=== PATIENT | male | born 1935 | race Caucasian/White ===

== ENCOUNTER 2017-12-15 10:29 | Emergency (ER) | payer MEDICARE, OTHER ==
[~2017-12-15] VITALS: Ht 188 cm; Wt 90.7 kg
[~2017-12-15 10:29] MED LIST: ALBU90OI6; ALBU90OI6 INH; ASPI325 PO; ASPI81CH PO; Aspirin EC81 MG; CARV25 PO; CARV3.125 PO; CARV6.25 PO; CAYENNE PEPPER PO; CETI10 PO; Co Q-10300 MG PO; DOXYLAMINE SUCCINATE PO; ELIQUIS5 MG PO; ENTRESTO 24 MG1 EACH PO; FAMO20 PO; FENT75TP TOP; FURO40 PO; Flomax0.4 MG PO; GUAI200 PO; Garlic1 EAC1 PO; ISODIN10 PO; LAVAP17G PO; LEVO750 PO; LISI10 PO; LISI5 PO; NITR.6SL; OXYC5 PO; Omega 3 Fish O1 EACH PO; Omeprazole20 M1 PO; PROSTATE PQ TA1 EACH PO; Prilosec20 MG PO; Prinivil10 MG PO; RED YEAST RICE; Red Yeast Rice600 MG PO; SPIR25 PO; STOOL SOFTENERS; STRESS B WITH1 EACH PO; TAMS.4ER PO; Zofran8 MG; [UNRECOGNIZED DRUG - OTHER]; [UNRECOGNIZED DRUG - OTHER] PO
[2017-12-15 11:49] LABS: BASOPHILS ABSOLUTE AUTO 0.02 K/mm3 (0.00-0.23); BASOPHILS PERCENT AUTO 0 % (0-2); EOSINOPHILS PERCENT AUTO 0 % (0-6); Hematocrit 47.6 % (37.0-53.0); Hemoglobin 15.5 g/dL (13.5-17.5); IMMATURE GRAN ABSOLUTE AUTO 0.02 K/mm3 (0.00-0.10); IMMATURE GRAN PERCENT AUTO 0 % (0-1); LYMPHOCYTES ABSOLUTE AUTO 1.01 K/mm3 (0.84-5.20); LYMPHOCYTES PERCENT AUTO 17 % (21-46); MONOCYTES ABSOLUTE AUTO 0.72 K/mm3 (0.16-1.47); MONOCYTES PERCENT AUTO 12 % (4-13); Mean Corpuscular HGB 30.2 pg (26.0-34.0); Mean Corpuscular HGB Conc 32.6 g/dL (31.5-36.5); Mean Corpuscular Volume 93 fL (80-100); Mean Platelet Volume 9.9 fL (9.1-12.4); NEUTROPHILS ABSOLUTE AUTO 4.35 K/mm3 (1.96-9.15); NEUTROPHILS PERCENT AUTO 71 % (41-73); Platelet Count 182 K/mm3 (150-400); RDW Coefficient Variation 14.3 % (11.7-14.2); RDW Standard Deviation 48.7 fL (35.1-46.3); Red Blood Cell Count 5.14 M/mm3 (4.30-5.90); White Blood Cell Count 6.12 K/mm3 (4.00-11.30)
[2017-12-15 12:13] LABS: Alanine Aminotransfer (ALT/SGP 20 U/L (12-78); Albumin, Blood 3.7 g/dL (3.4-5.0); Albumin/Globulin Ratio 0.9 (0.8-1.8); Alk Phos 103 U/L (50-136); Anion Gap 5 mmol/L (6-16); Aspartate Aminotrans (AST/SGOT 17 U/L (12-37); Bilirubin, Total 0.9 mg/dL (0.1-1.0); Blood Urea Nitrogen 18 mg/dL (8-24); Bun/Creatinine Ratio 13.8 (12.0-20.0); CO2, Blood 27 mmol/L (21-32); Calcium, Blood 8.7 mg/dL (8.5-10.1); Chloride, Blood 105 mmol/L (98-108); Globulin, Blood 4.3 g/dL (2.2-4.0); Glomerular Filtration Rate 56 (60-); Glucose, Blood 93 mg/dL (70-99); Potassium, Blood 4.4 mmol/L (3.5-5.5); Sodium, Blood 137 mmol/L (136-145); Troponin I <0.015 ng/mL (0.000-0.040)
[2017-12-15] MEDS ORDERED: CYCL10 PO (15:37)
== END 2017-12-15 16:05 | disposition home or self-care (01) ==
LOC: ER 10:29
PROVIDERS: Emergency Medicine
DX: I50.9 Heart failure, unspecified (principal); I25.10 Atherosclerotic heart disease of native coronary artery without angina pectoris; I25.2 Old myocardial infarction; J44.9 Chronic obstructive pulmonary disease, unspecified; I48.91 Unspecified atrial fibrillation; K21.9 Gastro-esophageal reflux disease without esophagitis; Z86.73 Personal history of transient ischemic attack (TIA), and cerebral infarction without residual deficits; Z95.0 Presence of cardiac pacemaker; Z88.1 Allergy status to other antibiotic agents; Z79.899 Other long term (current) drug therapy
CPT/HCPCS: 36415; 80053; 84484; 85025; 93005; 93010; 96374; 99283; J1940

== ENCOUNTER 2017-12-21 03:38 | Emergency (ER) | payer MEDICARE, OTHER ==
[~2017-12-21] VITALS: Ht 185.4 cm; Wt 90.7 kg
[~2017-12-21 03:38] MED LIST changes: +CYCL10 PO
[2017-12-21 04:26] LABS: Source, Urine Clean Catch
[2017-12-21 04:29] LABS: BASOPHILS ABSOLUTE AUTO 0.02 K/mm3 (0.00-0.23); BASOPHILS PERCENT AUTO 0 % (0-2); EOSINOPHILS PERCENT AUTO 0 % (0-6); Hematocrit 46.1 % (37.0-53.0); Hemoglobin 15.2 g/dL (13.5-17.5); IMMATURE GRAN ABSOLUTE AUTO 0.02 K/mm3 (0.00-0.10); IMMATURE GRAN PERCENT AUTO 0 % (0-1); LYMPHOCYTES ABSOLUTE AUTO 1.32 K/mm3 (0.84-5.20); LYMPHOCYTES PERCENT AUTO 15 % (21-46); MONOCYTES ABSOLUTE AUTO 0.91 K/mm3 (0.16-1.47); MONOCYTES PERCENT AUTO 10 % (4-13); Mean Corpuscular HGB 30.2 pg (26.0-34.0); Mean Corpuscular Volume 92 fL (80-100); Mean Platelet Volume 9.9 fL (9.1-12.4); NEUTROPHILS ABSOLUTE AUTO 6.57 K/mm3 (1.96-9.15); NEUTROPHILS PERCENT AUTO 74 % (41-73); Platelet Count 205 K/mm3 (150-400); RDW Coefficient Variation 14.2 % (11.7-14.2); RDW Standard Deviation 47.8 fL (35.1-46.3); Red Blood Cell Count 5.04 M/mm3 (4.30-5.90); White Blood Cell Count 8.84 K/mm3 (4.00-11.30)
[2017-12-21 04:37] LABS: Bilirubin, Urine Neg (Neg); Blood, Urine 5+ (Neg); Glucose Qualitative, Urine Neg (Neg); Ketones, Urine Neg (Neg); Leukocyte Esterase, Urine Neg (Neg); Nitrite, Urine Neg (Neg); Protein, Urine 4+ (Neg); Specific Gravity, Urine 1.015 (1.003-1.022); Urobilinogen, Urine 3+ (Normal); pH, Urine 6.5 (5.0-8.0)
[2017-12-21 04:42] LABS: Appearance, Urine Cloudy (Clear); Color, Urine Brown (P-Yellow)
[2017-12-21 04:47] LABS: Alanine Aminotransfer (ALT/SGP 32 U/L (12-78); Albumin, Blood 3.7 g/dL (3.4-5.0); Albumin/Globulin Ratio 0.8 (0.8-1.8); Alk Phos 150 U/L (50-136); Anion Gap 7 mmol/L (6-16); Aspartate Aminotrans (AST/SGOT 20 U/L (12-37); Bacteria Few /hpf; Bilirubin, Total 0.9 mg/dL (0.1-1.0); Blood Urea Nitrogen 19 mg/dL (8-24); Bun/Creatinine Ratio 14.5 (12.0-20.0); CO2, Blood 27 mmol/L (21-32); Calcium, Blood 8.4 mg/dL (8.5-10.1); Chloride, Blood 101 mmol/L (98-108); Creatinine, Blood 1.31 mg/dL (0.60-1.20); Globulin, Blood 4.5 g/dL (2.2-4.0); Glomerular Filtration Rate 56 (60-); Glucose, Blood 87 mg/dL (70-99); Red Blood Cells, Urine TNTC /hpf (0-2); Sodium, Blood 135 mmol/L (136-145); Squamous Epithelial Cells Not Seen /hpf (Few); Total Protein, Blood 8.2 g/dL (6.4-8.2); Troponin I <0.015 ng/mL (0.000-0.040); White Blood Cells, Urine 0-2 /hpf (0-5)
== END 2017-12-21 06:03 | disposition home or self-care (01) ==
LOC: ER 03:38
PROVIDERS: Emergency Medicine
DX: R31.9 Hematuria, unspecified (principal); Z88.8 Allergy status to other drugs, medicaments and biological substances; Z79.899 Other long term (current) drug therapy; I11.0 Hypertensive heart disease with heart failure; I50.9 Heart failure, unspecified; I25.2 Old myocardial infarction; I48.91 Unspecified atrial fibrillation
CPT/HCPCS: 51700; 51702; 80053; 81001; 84484; 85025; 93005; 93010; 99283

== ENCOUNTER 2017-12-25 05:35 | Emergency (ER) | payer MEDICARE, OTHER ==
[~2017-12-25] VITALS: Ht 185.4 cm; Wt 90.7 kg
[2017-12-25] MEDS ORDERED: Pyridium200 MG (05:51)
[2017-12-25] MEDS ORDERED: CIPR500 PO (05:51)
[2017-12-25] MEDS ORDERED: Hydrocodone-Ap1 EA23 PO (06:09)
[2017-12-25] MEDS ORDERED: SPIR25 PO (06:09)
[2017-12-25 06:32] LABS: Source, Urine Catheter
[2017-12-25 06:34] LABS: Blood, Urine 5+ (Neg); Glucose Qualitative, Urine Neg (Neg); Ketones, Urine Neg (Neg); Leukocyte Esterase, Urine 3+ (Neg); Nitrite, Urine Pos (Neg); Protein, Urine 3+ (Neg); Specific Gravity, Urine 1.015 (1.003-1.022); Urobilinogen, Urine 3+ (Normal); pH, Urine 6.5 (5.0-8.0)
[2017-12-25 06:41] LABS: Appearance, Urine Cloudy (Clear); Bilirubin, Urine 3+ (Neg); Color, Urine Amber (P-Yellow)
[2017-12-25 06:42] LABS: Red Blood Cells, Urine TNTC /hpf (0-2); Squamous Epithelial Cells Few /hpf (Few)
[2017-12-25 06:43] LABS: Bacteria Few /hpf
[2017-12-25] MEDS ORDERED: CEPH500 PO (07:32)
== END 2017-12-25 08:40 | disposition home or self-care (01) ==
LOC: ER 05:35
PROVIDERS: Emergency Medicine
DX: T83.511A Infection and inflammatory reaction due to indwelling urethral catheter, initial encounter (principal); I25.2 Old myocardial infarction; I50.9 Heart failure, unspecified; I11.0 Hypertensive heart disease with heart failure; I48.91 Unspecified atrial fibrillation; J44.9 Chronic obstructive pulmonary disease, unspecified; K21.9 Gastro-esophageal reflux disease without esophagitis; Z88.1 Allergy status to other antibiotic agents; Z79.899 Other long term (current) drug therapy; Z90.49 Acquired absence of other specified parts of digestive tract
CPT/HCPCS: 51798; 81001; 87086; 99283

== ENCOUNTER 2018-05-04 08:31 | Day surgery (SDC) | payer MEDICARE, OTHER ==
[~2018-05-04] VITALS: Ht 185.4 cm; Wt 94.1 kg
[~2018-05-04 08:31] MED LIST changes: +CEPH500 PO; +CIPR500 PO; +Hydrocodone-Ap1 EA23 PO; +Pyridium200 MG
[2018-05-04] MEDS ORDERED: LISI20 (09:14)
== END 2018-05-04 10:26 | disposition home or self-care (01) ==
LOC: ORSCSDS 08:31
PROVIDERS: Anesthesiology
PROC: 3E0R33Z Introduction of Anti-inflammatory into Spinal Canal, Percutaneous Approach (ICD-10-PCS; principal; 2018-05-04 10:00)
DX: M51.16 Intervertebral disc disorders with radiculopathy, lumbar region (principal); M96.1 Postlaminectomy syndrome, not elsewhere classified; I10 Essential (primary) hypertension; I73.9 Peripheral vascular disease, unspecified; Z86.73 Personal history of transient ischemic attack (TIA), and cerebral infarction without residual deficits; I25.10 Atherosclerotic heart disease of native coronary artery without angina pectoris; Z79.01 Long term (current) use of anticoagulants; Z79.899 Other long term (current) drug therapy; Z51.81 Encounter for therapeutic drug level monitoring
CPT/HCPCS: 36415; 85610; J1040

== ENCOUNTER 2019-09-29 16:54 | Inpatient (IN) | payer MEDICARE, OTHER ==
[~2019-09-29] VITALS: Ht 188 cm; Wt 84.8 kg
[~2019-09-29 16:54] MED LIST changes: +ELIQUIS2.5 MG PO; +FURO20 PO; +LISI20
[2019-09-29 17:28] LABS: BASOPHILS ABSOLUTE AUTO 0.02 K/mm3 (0.00-0.23); BASOPHILS PERCENT AUTO 0 % (0-2); EOSINOPHILS PERCENT AUTO 0 % (0-6); Hematocrit 43.2 % (37.0-53.0); IMMATURE GRAN ABSOLUTE AUTO 0.03 K/mm3 (0.00-0.10); IMMATURE GRAN PERCENT AUTO 0 % (0-1); LYMPHOCYTES PERCENT AUTO 6 % (21-46); MONOCYTES ABSOLUTE AUTO 0.82 K/mm3 (0.16-1.47); MONOCYTES PERCENT AUTO 8 % (4-13); Mean Corpuscular HGB 31.5 pg (26.0-34.0); Mean Corpuscular HGB Conc 32.4 g/dL (31.5-36.5); Mean Corpuscular Volume 97 fL (80-100); Mean Platelet Volume 10.4 fL (9.1-12.4); NEUTROPHILS ABSOLUTE AUTO 9.31 K/mm3 (1.96-9.15); NEUTROPHILS PERCENT AUTO 86 % (41-73); Platelet Count 176 K/mm3 (150-400); RDW Coefficient Variation 14.8 % (11.7-14.2); RDW Standard Deviation 53.2 fL (35.1-46.3); Red Blood Cell Count 4.44 M/mm3 (4.30-5.90); White Blood Cell Count 10.88 K/mm3 (4.00-11.30)
[2019-09-29 17:42] LABS: Albumin, Blood 3.4 g/dL (3.4-5.0); Albumin/Globulin Ratio 0.9 (0.8-1.8); Bilirubin, Total 2.4 mg/dL (0.1-1.0); Bun/Creatinine Ratio 16.4 (12.0-20.0); Calcium, Blood 8.9 mg/dL (8.5-10.1); Creatinine, Blood 1.34 mg/dL (0.60-1.20); Globulin, Blood 3.8 g/dL (2.2-4.0); Potassium, Blood 4.1 mmol/L (3.5-5.5); Total Protein, Blood 7.2 g/dL (6.4-8.2); Troponin I 0.022 ng/mL (0.000-0.040)
[2019-09-29] MEDS ORDERED: Bisoprolol Fumar5 MG PO (17:47)
[2019-09-29] MEDS ORDERED: THERA-D2000 UNIT PO (17:48)
[2019-09-29] MEDS ORDERED: CO Q10100 MG PO (17:49)
[2019-09-29] MEDS ORDERED: PROSTATE CONTR1 EACH PO (17:49)
[2019-09-29] MEDS ORDERED: POTA10T PO (17:51)
[2019-09-29] MEDS ORDERED: HYDROCODONE-AC1 EAC1 PO (17:51)
[2019-09-29 19:32] LABS: CPK Creatine Kinase 49 U/L (39-308)
[2019-09-29] MEDS ORDERED: DOCU100 PO (19:41)
[2019-09-30 02:15] LABS: Hematocrit 43.2 % (37.0-53.0); Hemoglobin 13.9 g/dL (13.5-17.5); Mean Corpuscular HGB 31.3 pg (26.0-34.0); Mean Corpuscular HGB Conc 32.2 g/dL (31.5-36.5); Mean Corpuscular Volume 97 fL (80-100); Mean Platelet Volume 10.3 fL (9.1-12.4); Platelet Count 160 K/mm3 (150-400); RDW Coefficient Variation 14.9 % (11.7-14.2); RDW Standard Deviation 54.2 fL (35.1-46.3); Red Blood Cell Count 4.44 M/mm3 (4.30-5.90); White Blood Cell Count 8.76 K/mm3 (4.00-11.30)
[2019-09-30 02:38] LABS: Alanine Aminotransfer (ALT/SGP 18 U/L (12-78); Albumin, Blood 3.2 g/dL (3.4-5.0); Albumin/Globulin Ratio 0.8 (0.8-1.8); Alk Phos 88 U/L (50-136); Anion Gap 8 mmol/L (6-16); Aspartate Aminotrans (AST/SGOT 21 U/L (12-37); Bilirubin, Total 1.5 mg/dL (0.1-1.0); Blood Urea Nitrogen 23 mg/dL (8-24); Bun/Creatinine Ratio 16.8 (12.0-20.0); CO2, Blood 23 mmol/L (21-32); CPK Creatine Kinase 53 U/L (39-308); Calcium, Blood 8.3 mg/dL (8.5-10.1); Chloride, Blood 107 mmol/L (98-108); Creatinine, Blood 1.37 mg/dL (0.60-1.20); Globulin, Blood 3.9 g/dL (2.2-4.0); Glomerular Filtration Rate 53 (60-); Glucose, Blood 78 mg/dL (70-99); Potassium, Blood 4.1 mmol/L (3.5-5.5); Sodium, Blood 138 mmol/L (136-145); Total Protein, Blood 7.1 g/dL (6.4-8.2); Troponin I <0.015 ng/mL (0.000-0.040)
--- NOTE | 2019-09-30 05:55 | NUR ---
SHIFT SUMMARY PATIENT ARRIVED TO THE UNIT AT ABOUT 2007. HE IS PLEASANT, ALERT AND ORIENTED, AND HARD OF HEARING. HE WILL SOMETIMES TRY TO GET UP TO THE BATHROOM WITHOUT USING THE CALL LIGHT SO HIS BED ALARM HAS BEEN TURNED ON. PATIENT IS REORIENTED TO THE USE OF THE CALL LIGHT WHEN THIS HAPPENS. HE HAD ONE EPISODE OF REPORTED SHORTNESS OF BREATH DURING WHICH THE HEAD OF HIS BED WAS FLAT. I RAISED THE HEAD OF HIS BED FOR HIM, AFTER WHICH HE STATED THAT HE WAS ABLE TO BREATHE BETTER. HE HAS BEEN ON 2 LITERS OF OXYGEN OVER NIGHT. HIS IV IS PATENT AND FLUSHED. HIS TELE SHOWS HIM TO BE PACED AT 70. BED IN LOWEST POSITION WITH WHEELS LOCKED. CALL LIGHT AND BELONGINGS WITHIN REACH. REPORT GIVEN TO LIZANDRO ANDERSON.
[2019-09-30 13:09] LABS: Adenovirus Not Detected (NOT DETECT)
[2019-09-30 13:10] LABS: Coronavirus 229E Not Detected (NOT DETECT); Coronavirus HKU1 Not Detected (NOT DETECT); Coronavirus NL63 Not Detected (NOT DETECT); Coronavirus OC43 Not Detected (NOT DETECT); Human Metapneumovirus Not Detected (NOT DETECT); Human Rhinovirus/Enterovirus Not Detected (NOT DETECT); Influenza A Not Detected (NOT DETECT); Influenza A/2009-H1 Not Detected (NOT DETECT); Influenza A/H1 Not Detected (NOT DETECT); Influenza A/H3 Not Detected (NOT DETECT)
[2019-09-30 13:11] LABS: Bordetella pertussis Not Detected (NOT DETECT); Chlamydophila pneumoniae Not Detected (NOT DETECT); Influenza B Not Detected (NOT DETECT); Mycoplasma pneumoniae Not Detected (NOT DETECT); Parainfluenza Virus 1 Not Detected (NOT DETECT); Parainfluenza Virus 2 Not Detected (NOT DETECT); Parainfluenza Virus 3 Not Detected (NOT DETECT); Parainfluenza Virus 4 Not Detected (NOT DETECT); Respiratory Syncytial Virus Not Detected (NOT DETECT)
--- NOTE | 2019-09-30 16:57 | NUR ---
SHIFT SUMMARY: PT IS A/O X 4 AND VERY PLEASANT AND COOPERATIVE WITH HIS CARE. HE DENIES SOB AND NAUSEA AND HAS NO EDEMA OBSERVED. HE CONTINUES ON 2 LPM OF O2 VIA N.C. TELE REMAINS PACED @ 70. PT HAD AN ECHO THIS MORNING ORDERED. PT HAS BEEN AT BEDSIDE MOST OF THE DAY. PT IS A STAND BY ASSIST WITH HIS CANE AND AMBULATES TO THE TOILET. HE IS ABLE TO MAKE HIS NEEDS KNOWN AND CALLS FOR HELP APPROPRIATELY. HE IS SLEEPING NOW AND HAS HIS CALL LIGHT IN REACH.
--- NOTE | 2019-10-01 04:50 | NUR ---
SHIFT SUMMARY- NO ACUTE EVENTS OVERNIGHT. PT. A&O, PLEASANT AND COOPERATIVE WITH CARE. ASLEEP T/O THE NIGHT. NO APPARENT DISTRESS NOTED. PT. ON 2L NC, THIS IS PT'S BASELINE. PT. ABLE TO AMBULATE WITH CANE TO THE BATHROOM WITH MINIMAL ASSISTANCE. DENIED ANY NEEDS DURING THE NIGHT. CALL LIGHT WITHIN REACH AND SIDE RAILS UP X2. WILL CONT TO MONITOR.
[2019-10-01 05:02] LABS: BASOPHILS ABSOLUTE AUTO 0.04 K/mm3 (0.00-0.23); BASOPHILS PERCENT AUTO 1 % (0-2); EOSINOPHILS PERCENT AUTO 0 % (0-6); Hematocrit 41.6 % (37.0-53.0); Hemoglobin 13.5 g/dL (13.5-17.5); IMMATURE GRAN ABSOLUTE AUTO 0.02 K/mm3 (0.00-0.10); IMMATURE GRAN PERCENT AUTO 0 % (0-1); LYMPHOCYTES ABSOLUTE AUTO 1.66 K/mm3 (0.84-5.20); LYMPHOCYTES PERCENT AUTO 19 % (21-46); MONOCYTES ABSOLUTE AUTO 0.93 K/mm3 (0.16-1.47); MONOCYTES PERCENT AUTO 11 % (4-13); Mean Corpuscular HGB 31.2 pg (26.0-34.0); Mean Corpuscular HGB Conc 32.5 g/dL (31.5-36.5); Mean Corpuscular Volume 96 fL (80-100); Mean Platelet Volume 10.5 fL (9.1-12.4); NEUTROPHILS ABSOLUTE AUTO 5.95 K/mm3 (1.96-9.15); NEUTROPHILS PERCENT AUTO 69 % (41-73); Platelet Count 172 K/mm3 (150-400); RDW Coefficient Variation 14.7 % (11.7-14.2); RDW Standard Deviation 51.6 fL (35.1-46.3); Red Blood Cell Count 4.33 M/mm3 (4.30-5.90)
[2019-10-01 05:21] LABS: Bun/Creatinine Ratio 17.9 (12.0-20.0); Calcium, Blood 8.5 mg/dL (8.5-10.1); Creatinine, Blood 1.51 mg/dL (0.60-1.20); Potassium, Blood 3.8 mmol/L (3.5-5.5)
--- NOTE | 2019-10-01 16:15 | NUR ---
SHIFT SUMMARY: PT REMAINS A/O X 4 AND VERY PLEASANT AND COOPERATIVE WITH HIS CARE. HE DENIES SOB AND LUNGS ARE CLEAR. PT REPORTED THIS MORNING THAT HE WAS TIRED FROM NOT SLEEPING LAST NIGHT. SUPERVISOR TELEPHONE ANSWERING SERVICE REPORTS THAT PT WAS PACED @ 76 BUT THE TELE WAS LATER DCD BY DR GARCIA. CT WAS COMPLETED ORDERED AND RESULTS WERE CALLED IN TO DR GARCIA WHO REPORTED THAT PER HIS CONVERSATION WITH THE PT AND HIS THIS MORNING THE PT NEEDS TO STAY FOR AT LEAST ONE MORE NIGHT FOR DIURESIS AND TO WEEN OFF THE O2. PT IS AGREEABLE ALTHOUGH HE SAYS THE BED IS UNCOMFORTABLE AND HE WOULD RATHER BE AT HOME. HE IS RESTING IN BED WITH HIS AT THE BEDSIDE AND IS ABLE TO MAKE HIS NEEDS KNOWN.
--- NOTE | 2019-10-01 20:35 | NUR ---
PATIENT RESTING IN ROOM, WATCHING TV. ASKING FOR PAIN MED AND MED TO HELP WITH SLEEP. NOT USING OXYGEN AT THIS TIME, STATES HE USES IT AT NIGHT. DENIES ANY SOB AT THIS TIME. INFORMED WILL PULL WITH NIGHT MEDS HE AGREED TO THIS. DENIES ANY OTHER NEEDS AT THIS TIME. CALL LIGHT IN REACH.
[2019-10-02 04:32] LABS: BASOPHILS ABSOLUTE AUTO 0.05 K/mm3 (0.00-0.23); BASOPHILS PERCENT AUTO 1 % (0-2); EOSINOPHILS PERCENT AUTO 0 % (0-6); Hematocrit 42.4 % (37.0-53.0); Hemoglobin 13.9 g/dL (13.5-17.5); IMMATURE GRAN ABSOLUTE AUTO 0.01 K/mm3 (0.00-0.10); IMMATURE GRAN PERCENT AUTO 0 % (0-1); LYMPHOCYTES ABSOLUTE AUTO 1.65 K/mm3 (0.84-5.20); LYMPHOCYTES PERCENT AUTO 27 % (21-46); MONOCYTES ABSOLUTE AUTO 0.66 K/mm3 (0.16-1.47); MONOCYTES PERCENT AUTO 11 % (4-13); Mean Corpuscular HGB Conc 32.8 g/dL (31.5-36.5); Mean Corpuscular Volume 94 fL (80-100); Mean Platelet Volume 10.3 fL (9.1-12.4); NEUTROPHILS ABSOLUTE AUTO 3.71 K/mm3 (1.96-9.15); NEUTROPHILS PERCENT AUTO 61 % (41-73); Platelet Count 190 K/mm3 (150-400); RDW Coefficient Variation 14.6 % (11.7-14.2); RDW Standard Deviation 50.9 fL (35.1-46.3); Red Blood Cell Count 4.49 M/mm3 (4.30-5.90); White Blood Cell Count 6.08 K/mm3 (4.00-11.30)
[2019-10-02 04:51] LABS: Bun/Creatinine Ratio 17.5 (12.0-20.0); Calcium, Blood 8.8 mg/dL (8.5-10.1); Creatinine, Blood 1.43 mg/dL (0.60-1.20); Potassium, Blood 3.9 mmol/L (3.5-5.5)
--- NOTE | 2019-10-02 05:45 | NUR ---
SHIFT SUMMARY: 83 Y/O MALE ADMITTED FOR ACUTE BRONCHITIS/PNUMONIA. VS STABLE THIS SHIFT. ON RA WITH SATS IN THE 90'S DID WEAR O2 AT 2 LITERS WHILE SLEEPING. PAIN MED GIVEN FOR BACK PAIN. PATIENT SLEPT OFF AND ON THIS SHIFT, WITH NO ACUTE CHANGES OR CONCERNS. HOPES TO GO HOME TODAY. WILL REPORT TO DAY SHIFT RN.
--- NOTE | 2019-10-02 16:18 | NUR ---
DISCHARGE NOTE. PATIENT LEFT PRIOR TO THIS RN COMPLETING DISCHARGE PAPERWORK DUE TO THE EVENING HOUR APPROACHING AND THE NOT WANTING TO DRIVE IN THE [place]. PATIENT INSTRUCTED TO OUTSIDE DELIVERER MEDS TO [facility]. PATIENT WHEELED OUT VIA W/C BY COMMAND AND CONTROL SPECIALIST. IV REMOVED.
[2019-10-02] MEDS ORDERED: ALBU3IS INH (16:36)
[2019-10-02] MEDS ORDERED: PRED20 PO (16:36)
--- NOTE | 2019-10-02 16:43 | NUR ---
FOLLOW UP APPOINTMENT SCHEDULED WITH PCP, MESSAGE LEFT ON SPOUSE VOICEMAIL.
--- NOTE | 2019-10-02 19:26 | NUR ---
MESSAGE LEFT WITH RADIATION PHYSICIST PRASAD REGARDING PT IN NEED OF NEBULIZER ORDERS. PT DISCHARGED PRIOR TO RECEEIVING DISCHARGE ORDERS DUE TO PT SPOUSE NOT WANTING TO DRIVE IN THE DARK. MESSAGE LEFT FOR SPOUSE TO CALL BACK FOR UPDATE BUT NO CALL BACK. F/U WAS MADE WITH PCP FOR MONDAY.
== END 2019-10-02 16:25 | disposition home or self-care (01) | DRG 202 ==
LOC: ER 16:54 → MEDS 16:55
PROVIDERS: Emergency Medicine; Hospitalist; ADMIT Internal Medicine
DX: J20.9 Acute bronchitis, unspecified (principal); J96.21 Acute and chronic respiratory failure with hypoxia; I50.42 Chronic combined systolic (congestive) and diastolic (congestive) heart failure; I13.0 Hypertensive heart and chronic kidney disease with heart failure and stage 1 through stage 4 chronic kidney disease, or unspecified chronic kidney disease; I25.2 Old myocardial infarction; K21.9 Gastro-esophageal reflux disease without esophagitis; J44.9 Chronic obstructive pulmonary disease, unspecified; G47.30 Sleep apnea, unspecified; Z86.73 Personal history of transient ischemic attack (TIA), and cerebral infarction without residual deficits; I48.91 Unspecified atrial fibrillation; Z96.652 Presence of left artificial knee joint; Z95.0 Presence of cardiac pacemaker; E87.70 Fluid overload, unspecified; Z99.81 Dependence on supplemental oxygen; N40.0 Benign prostatic hyperplasia without lower urinary tract symptoms; N18.3 Chronic kidney disease, stage 3 (moderate); R59.0 Localized enlarged lymph nodes
CPT/HCPCS: 0099U; 36415; 71046; 71250; 80048; 80053; 82550; 83605; 83880; 84145; 84484; 85025; 85027; 87040; 87070; 87205; 92526; 92610; 93005; 93010; 93306; 94760; 96361; 96365; 96366; 96367; 96375; 99285-25; A9270-GY; G0378; J0456; J0696; J1940; J1956; J7030; J7050